=== PATIENT | female | born 1955 | race Caucasian/White ===

== ENCOUNTER → 2016-10-19 | Outpatient (CLI) | payer OTHER ==
[2016-10-19 12:29] LABS: HEMOGLOBIN 13.5 gm/dl (12.3-15.3); RED BLOOD COUNT 4.76 M/UL (4.00-5.10); WHITE BLOOD COUNT 9.9 K/UL (4.5-11.0)
[2016-10-19 13:05] LABS: BUN/CREATININE RATIO 24 (0-10)
== END ==
LOC: CT 11:24
PROVIDERS: Internal Medicine Hematology & Oncology
DX: C18.3 Malignant neoplasm of hepatic flexure (principal); R91.8 Other nonspecific abnormal finding of lung field; J44.9 Chronic obstructive pulmonary disease, unspecified
CPT/HCPCS: 36415; 71260; 80053; 82378; 85025; J7050; Q9962

== ENCOUNTER → 2021-02-04 | Outpatient (CLI) | payer OTHER ==
[~2021-02-04] MED LIST: ALBUTEROL0.63 MG/3 INH; ALBUTEROL2.5 MG/3 M INH; AMOXICILLIN500 MG PO; GLUCOPHAGE500 MG PO; OMEPRAZOLE20 M1 PO; SPIRIVA18 MCG INH; SYMBICORT 160-1 INHA INH; TAMIFLU 75 MG C75 MG PO; VENTOLIN HFA 66.7 GM INH; ZITHROMAX500 MG PO
== END ==
LOC: KOH-I 16:19
DX: Z87.891 Personal history of nicotine dependence (principal); R91.8 Other nonspecific abnormal finding of lung field; J43.9 Emphysema, unspecified; N28.9 Disorder of kidney and ureter, unspecified
CPT/HCPCS: 71271

== ENCOUNTER → 2021-02-18 | Day surgery (SDC) | payer OTHER ==
[~2021-02-18] MED LIST changes: +ADVAIR HFA 230/1 INH INH; +CLONAZEPAM0.125 MG PO; +LOPRESSOR 25 MG25 MG PO
== END | disposition home or self-care (01) ==
LOC: OR 10:23
DX: D50.0 Iron deficiency anemia secondary to blood loss (chronic) (principal); K44.9 Diaphragmatic hernia without obstruction or gangrene; K57.30 Diverticulosis of large intestine without perforation or abscess without bleeding; K64.0 First degree hemorrhoids; K56.699 Other intestinal obstruction unspecified as to partial versus complete obstruction; R19.5 Other fecal abnormalities; I10 Essential (primary) hypertension; I25.10 Atherosclerotic heart disease of native coronary artery without angina pectoris; J44.9 Chronic obstructive pulmonary disease, unspecified; K21.9 Gastro-esophageal reflux disease without esophagitis; E11.9 Type 2 diabetes mellitus without complications; Z85.038 Personal history of other malignant neoplasm of large intestine; Z87.891 Personal history of nicotine dependence; Z88.1 Allergy status to other antibiotic agents; Z79.899 Other long term (current) drug therapy
CPT/HCPCS: 82962; J2001; J2704; J7040

== ENCOUNTER → 2021-04-21 | Outpatient (CLI) | payer OTHER | LOC: RAD 07:38 | DX: K56.699 Other intestinal obstruction unspecified as to partial versus complete obstruction (principal) | CPT/HCPCS: 74270 ==

== ENCOUNTER → 2021-06-04 | Outpatient (CLI) | payer OTHER | LOC: EXRD 14:13 | DX: M25.511 Pain in right shoulder (principal) | CPT/HCPCS: 73030; 73060 ==

== ENCOUNTER → 2021-09-21 | Outpatient (CLI) | payer OTHER | LOC: LAB 15:22 | DX: R09.02 Hypoxemia (principal) | CPT/HCPCS: 36600; 82803 ==

== ENCOUNTER → 2021-09-21 | Outpatient (CLI) | payer OTHER | LOC: HEART 5 14:24 | DX: J44.9 Chronic obstructive pulmonary disease, unspecified (principal); R94.2 Abnormal results of pulmonary function studies | CPT/HCPCS: 94010 ==

== ENCOUNTER 2021-12-16 01:00 | Inpatient (IN) | payer OTHER ==
[~2021-12-16] VITALS: Ht 157.5 cm; Wt 59.0 kg
[~2021-12-16 01:00] MED LIST changes: -CLONAZEPAM0.125 MG PO; +KLONOPIN0.5 MG PO; +SPIRIVA HANDIH18 MCG INH; -SPIRIVA18 MCG INH
[2021-12-16 01:27] LABS: HEMOGLOBIN 10.4 gm/dl (12.3-15.3); RED BLOOD COUNT 4.23 M/UL (4.00-5.10); WHITE BLOOD COUNT 22.3 K/UL (4.5-11.0)
[2021-12-16 01:51] LABS: BUN/CREATININE RATIO 26 (0-10)
[2021-12-16] MEDS ORDERED: ONE-A-DAY WOME1 EAC5 PO (09:26)
[2021-12-17 02:30] LABS: HEMOGLOBIN 9.9 gm/dl (12.3-15.3); RED BLOOD COUNT 4.04 M/UL (4.00-5.10); WHITE BLOOD COUNT 19.3 K/UL (4.5-11.0)
[2021-12-17 03:39] LABS: BUN/CREATININE RATIO 29 (0-10)
[2021-12-17] MEDS ORDERED: FERROUS SULFAT325 M2 PO (18:43)
[2021-12-17] MEDS ORDERED: MEDROL DOSEPAK 24 MG PO (18:46)
[2021-12-18 03:13] LABS: HEMOGLOBIN 9.6 gm/dl (12.3-15.3); RED BLOOD COUNT 3.95 M/UL (4.00-5.10); WHITE BLOOD COUNT 17.4 K/UL (4.5-11.0)
[2021-12-18 03:46] LABS: BUN/CREATININE RATIO 41 (0-10)
[2021-12-18] MEDS ORDERED: CEFDINIR300 MG PO (11:08)
== END 2021-12-18 13:41 | disposition home health service (06) | DRG 871 ==
LOC: ER1 01:00 → CDU 08:36 → PROG CARE 14:42
PROVIDERS: Physician Assistant; ADMIT Internal Medicine
PROC: 5A09357 Assistance with Respiratory Ventilation, Less than 24 Consecutive Hours, Continuous Positive Airway Pressure (ICD-10-PCS; principal; 2021-12-16)
DX: A41.51 Sepsis due to Escherichia coli [E. coli] (principal); J18.9 Pneumonia, unspecified organism; J96.21 Acute and chronic respiratory failure with hypoxia; J96.22 Acute and chronic respiratory failure with hypercapnia; J44.0 Chronic obstructive pulmonary disease with (acute) lower respiratory infection; J44.1 Chronic obstructive pulmonary disease with (acute) exacerbation; N39.0 Urinary tract infection, site not specified; Z20.822 Contact with and (suspected) exposure to COVID-19; D50.9 Iron deficiency anemia, unspecified; G20 Parkinson's disease; E11.9 Type 2 diabetes mellitus without complications; I10 Essential (primary) hypertension; F41.0 Panic disorder [episodic paroxysmal anxiety]; Z85.038 Personal history of other malignant neoplasm of large intestine; Z98.890 Other specified postprocedural states; Z87.891 Personal history of nicotine dependence; Z90.710 Acquired absence of both cervix and uterus; Z90.49 Acquired absence of other specified parts of digestive tract; Z82.49 Family history of ischemic heart disease and other diseases of the circulatory system; Z81.8 Family history of other mental and behavioral disorders; Z99.81 Dependence on supplemental oxygen; Z88.8 Allergy status to other drugs, medicaments and biological substances
CPT/HCPCS: 0240U; 36415; 36600; 71045; 80048; 80053; 81001; 82550; 82553; 82803; 82962; 83036; 83540; 83550; 83605; 83735; 83880; 84484; 85025; 85027; 86140; 87040; 87077; 87086; 87186; 87278; 87899; 93005; 94640; 94660; 94760; 96374; 96375; 96376; 99285; J0456; J0696; J1100; J1650; J2920; J2930; J7030